=== PATIENT | female | born 1970 | race Caucasian/White ===

== ENCOUNTER 2016-07-21 07:08 | Emergency (ER) | payer MEDICAID ==
[~2016-07-21] VITALS: Ht 154.9 cm; Wt 54.9 kg
[2016-07-21 07:25] VITALS: BP 130/61; PULSE 73; RESP 18; TEMP 97.8; O2SAT 99
--- NOTE | 2016-07-21 07:25 | NUR ---
Pt report received from LISA Williamson. Pt c/o swelling to Right upper an lower lips since this AM. Denies oral trauma or injury and no pain to site. Pt states that same issue happened 1 year ago and went to ER, but etiology was unknown.
[2016-07-21] MEDS ORDERED: DEXAMETHASONE SOD PHOSPHATE 10 MG/ML VIAL IM ONE (08:00)
--- NOTE | 2016-07-21 08:00 | NUR ---
Dr. Kaiser at bedside to assess pt.
[2016-07-21 08:30] VITALS: BP 128/82; PULSE 76; RESP 20; TEMP 97.8; O2SAT 100
--- NOTE | 2016-07-21 08:30 | NUR ---
Patient given written and verbal discharge instructions and verbalizes understanding. ER MD discussed with patient the results and treatment provided. Patient in stable condition. ID arm band removed. Rx of Claritin and Valacyclovir given. Patient educated on pain management and to follow up with PMD. Pain Scale 0/10. Opportunity for questions provided and answered.
== END 2016-07-21 08:30 | disposition home or self-care (01) ==
LOC: SED 07:08
DX: T78.40XA Allergy, unspecified, initial encounter (principal); X58.XXXA Exposure to other specified factors, initial encounter; R03.0 Elevated blood-pressure reading, without diagnosis of hypertension
CPT/HCPCS: 96372; 99283; J1100; J7030